=== PATIENT | male | born 1995 | race Asian ===

== ENCOUNTER 2018-02-11 13:06 | Emergency (ER) | payer MEDICAID, OTHER ==
[~2018-02-11] VITALS: Ht 190.5 cm; Wt 109.1 kg
[~2018-02-11 13:06] MED LIST: SERT50TA12 PO
[2018-02-11 17:35] VITALS: BP 127/74
== END 2018-02-11 17:54 | disposition home or self-care (01) ==
LOC: EMS 13:06
DX: F33.9 Major depressive disorder, recurrent, unspecified (principal)

== ENCOUNTER 2018-04-06 00:07 | Inpatient (IN) | payer MEDICAID, OTHER ==
[~2018-04-06] VITALS: Ht 190.5 cm; Wt 127.5 kg
[2018-04-06 01:22] LABS: BASOPHILS % (AUTO) 0.3 % (0.0-2.0); EOSINOPHILS % (AUTO) 1.5 % (1.0-6.0); HEMOGLOBIN 16.1 g/dL (13.5-17.5); LYMPHOCYTES # (AUTO) 2.6 K/uL (1.0-4.8); LYMPHOCYTES % (AUTO) 19.6 % (22.0-44.0); MEAN CORPUSCULAR HEMOGLOBIN 31.4 pg (26.0-34.0); MEAN CORPUSCULAR HGB CONC 33.6 G/dL (31.0-37.0); MEAN CORPUSCULAR VOLUME 94 fL (80-100); MONOCYTES # (AUTO) 1.4 K/uL (0.1-1.0); MONOCYTES % (AUTO) 10.8 % (2.0-9.0); NEUTROPHILS # (AUTO) 8.9 K/uL (1.8-7.7); NEUTROPHILS % (AUTO) 67.8 % (40.0-70.0); PLATELET COUNT (AUTO) 248 K/uL (150-450); RED BLOOD CELL COUNT(AUTO) 5.13 MIL/uL (4.50-5.90); RED CELL DISTRIBUTION WIDTH 12.7 % (11.5-14.5)
[2018-04-06 01:28] LABS: ANION GAP 8 mmol/L (8-16); CARBON DIOXIDE 28 mmol/L (22-29); CHLORIDE 99 mmol/L (98-107); CREATININE 1.18 mg/dL (0.60-1.30); GLOMERULAR FILTR. RATE CALC > 60 mL/min (>60); GLUCOSE,RANDOM 101 mg/dL (70-110); POTASSIUM 3.5 mmol/L (3.5-5.1); SODIUM SERUM 135 mmol/L (136-145); UREA NITROGEN, BLOOD 22 mg/dL (7-18)
[2018-04-06 01:37] LABS: ALANINE AMINOTRANSFERASE 49 U/L (12-78); ALBUMIN 3.8 g/dL (3.4-5.0); ALKALINE PHOSPHATASE 74 U/L (46-116); ASPARTATE AMINOTRANSFERASE 27 U/L (15-37); BILIRUBIN,TOTAL 0.2 mg/dL (0.1-1.0); CALCIUM, TOTAL 9.3 mg/dL (8.8-10.5); TOTAL PROTEIN, SERUM 7.6 g/dL (6.4-8.2)
[2018-04-06] MEDS ORDERED: ZOLPIDEM TARTRATE 10 MG TABLET PO PRN (03:45)
[2018-04-06] MEDS ORDERED: HALOPERIDOL 5 MG TABLET PO PRN (03:45)
[2018-04-06 05:57] VITALS: BP 141/76
[2018-04-06] MEDS ORDERED: IBUPROFEN 400 MG TABLET PO PRN (07:00)
[2018-04-06] MEDS ORDERED: PETROLATUM,WHITE 71 GM JELLY TP PRN (07:00)
[2018-04-06] MEDS ORDERED: ALBUTEROL SULFATE HFA 90 MCG/PUFF 8 GM INHALER IH PRN (07:00)
[2018-04-06] MEDS ORDERED: CloNIDine HCL 0.1 MG TABLET PO PRN (07:00)
[2018-04-06] MEDS ORDERED: ACETAMINOPHEN 325 MG TABLET PO PRN (07:00)
[2018-04-06] MEDS ORDERED: ONDANSETRON HCL 4 MG TABLET PO PRN (07:00)
[2018-04-06] MEDS ORDERED: MAGNESIUM HYDROXIDE SUSPENSION 30 ML UDCUP PO PRN (07:00)
[2018-04-06] MEDS ORDERED: GuaiFENesin/D-METHORPHAN [SUGAR-FREE] 200-20MG/10 ML SYRUP UDCUP PO PRN (07:00)
[2018-04-06] MEDS ORDERED: MAG HYDROX/AL HYDROX/SIMETH ES 30 ML SUSPENSION UDCUP PO PRN (07:00)
[2018-04-06] MEDS ORDERED: LOPERAMIDE HCL 2 MG CAPSULE PO PRN (07:00)
[2018-04-06] MEDS ORDERED: DOCUSATE SODIUM 100 MG CAPSULE PO PRN (07:00)
[2018-04-06 08:15] VITALS: BP 140/79
[2018-04-06 16:00] VITALS: BP 120/68
[2018-04-06] MEDS: LORazepam 2 MG TABLET PO PRN (16:55)
[2018-04-06] MEDS: RisperiDONE 1 MG TABLET PO SCH (20:22)
[2018-04-07 06:24] VITALS: BP 118/73
[2018-04-07 08:11] VITALS: BP 136/82
[2018-04-07] MEDS: RisperiDONE 1 MG TABLET PO SCH ×2 (09:03→20:35)
[2018-04-07] MEDS: SERTRALINE HCL 50 MG TABLET PO SCH (09:03)
[2018-04-07 09:16] LABS: CHOL/HDL RATIO 3.3 (4.2-7.3)
[2018-04-07 16:00] VITALS: BP 137/70
[2018-04-08 04:30] VITALS: BP 122/79
[2018-04-08] MEDS: SERTRALINE HCL 50 MG TABLET PO SCH (08:29)
[2018-04-08] MEDS: RisperiDONE 1 MG TABLET PO SCH ×2 (08:29→20:43)
[2018-04-08 09:19] VITALS: BP 123/61
[2018-04-08 16:20] VITALS: BP 122/75
[2018-04-09 04:39] VITALS: BP 118/72
[2018-04-09 08:00] VITALS: BP 115/61
[2018-04-09 08:03] LABS: BASOPHILS % (AUTO) 0.4 % (0.0-2.0); HEMATOCRIT 44.6 % (41-53); HEMOGLOBIN 15.3 g/dL (13.5-17.5); LYMPHOCYTES # (AUTO) 3.1 K/uL (1.0-4.8); MEAN CORPUSCULAR HEMOGLOBIN 31.9 pg (26.0-34.0); MEAN CORPUSCULAR HGB CONC 34.4 G/dL (31.0-37.0); MEAN CORPUSCULAR VOLUME 93 fL (80-100); MONOCYTES # (AUTO) 0.7 K/uL (0.1-1.0); MONOCYTES % (AUTO) 7.9 % (2.0-9.0); NEUTROPHILS # (AUTO) 5.1 K/uL (1.8-7.7); NEUTROPHILS % (AUTO) 55.7 % (40.0-70.0); PLATELET COUNT (AUTO) 212 K/uL (150-450); RED BLOOD CELL COUNT(AUTO) 4.81 MIL/uL (4.50-5.90); RED CELL DISTRIBUTION WIDTH 12.5 % (11.5-14.5)
[2018-04-09] MEDS: RisperiDONE 1 MG TABLET PO SCH ×2 (09:13→20:13)
[2018-04-09] MEDS: SERTRALINE HCL 50 MG TABLET PO SCH (09:13)
[2018-04-09 16:00] VITALS: BP 125/78
[2018-04-09] MEDS: LORazepam 2 MG TABLET PO PRN (20:13)
[2018-04-10 05:14] VITALS: BP 120/72
[2018-04-10 08:18] VITALS: BP 128/74
[2018-04-10] MEDS: SERTRALINE HCL 50 MG TABLET PO SCH (08:46)
[2018-04-10] MEDS: RisperiDONE 1 MG TABLET PO SCH (08:46)
[2018-04-10] MEDS ORDERED: SERT25TA PO (14:17)
[2018-04-10] MEDS ORDERED: RISP1TAB89 PO (14:17)
[2018-04-10 16:00] VITALS: BP 136/79
== END 2018-04-10 16:20 | disposition home or self-care (01) | DRG 750 ==
LOC: EMS 00:07 → B3A 04:00
DX: F25.1 Schizoaffective disorder, depressive type (principal); E87.1 Hypo-osmolality and hyponatremia; R45.851 Suicidal ideations; D72.829 Elevated white blood cell count, unspecified; G47.00 Insomnia, unspecified
CPT/HCPCS: G0480

== ENCOUNTER 2022-07-12 09:25 | Emergency (ER) | payer MEDICAID, OTHER ==
[~2022-07-12] VITALS: Ht 193 cm; Wt 135.9 kg
[~2022-07-12 09:25] MED LIST changes: +RISP1TAB89 PO; +SERT25TA PO; -SERT50TA12 PO
[2022-07-12 10:06] VITALS: BP 145/89
[2022-07-12 10:21] LABS: BASOPHILS % (AUTO) 0.5 % (0.0-2.0); EOSINOPHILS % (AUTO) 0.7 % (1.0-6.0); HEMATOCRIT 48.3 % (41-53); HEMOGLOBIN 15.7 g/dL (13.5-17.5); MEAN CORPUSCULAR HEMOGLOBIN 30.2 pg (26.0-34.0); MEAN CORPUSCULAR HGB CONC 32.6 G/dL (31.0-37.0); MEAN CORPUSCULAR VOLUME 93 fL (80-100); MONOCYTES % (AUTO) 7.2 % (2.0-9.0); NEUTROPHILS # (AUTO) 10.8 K/uL (1.8-7.7); NEUTROPHILS % (AUTO) 77.6 % (40.0-70.0); PLATELET COUNT (AUTO) 301 K/uL (150-450); RED CELL DISTRIBUTION WIDTH 13.1 % (11.5-14.5)
[2022-07-12 10:29] LABS: COVID AG,FIA SOURCE NASOPHARYNGEAL
[2022-07-12 10:36] LABS: ANION GAP 10 mmol/L (8-16); CALCIUM, TOTAL 9.1 mg/dL (8.8-10.5); CARBON DIOXIDE 24 mmol/L (22-29); CHLORIDE 102 mmol/L (98-107); CREATININE 1.03 mg/dL (0.60-1.30); GLOMERULAR FILTR. RATE CALC > 60 mL/min (>60); GLUCOSE,RANDOM 114 mg/dL (70-110); SODIUM SERUM 136 mmol/L (136-145)
[2022-07-12 10:44] LABS: ALANINE AMINOTRANSFERASE 46 U/L (12-78); ALBUMIN 4.1 g/dL (3.4-5.0); ALKALINE PHOSPHATASE 75 U/L (46-116); ASPARTATE AMINOTRANSFERASE 28 U/L (15-37); BILIRUBIN,TOTAL 0.5 mg/dL (0.1-1.0); TOTAL PROTEIN, SERUM 8.2 g/dL (6.4-8.2)
== END 2022-07-12 13:27 | disposition home or self-care (01) ==
LOC: EMS 09:30
DX: R45.1 Restlessness and agitation (principal); F20.9 Schizophrenia, unspecified
CPT/HCPCS: 99285; 87426; 80053; 85025; G0480

== ENCOUNTER 2022-08-01 16:24 | Inpatient (IN) | payer MEDICAID, OTHER ==
[~2022-08-01] VITALS: Ht 193 cm; Wt 134.6 kg
[2022-08-01] MEDS ORDERED: LORazepam 2 MG TABLET PO ONE (18:15)
[2022-08-01] MEDS ORDERED: OLANZapine 5 MG TABLET PO ONE (18:15)
[2022-08-01 18:20] LABS: COVID AG,FIA SOURCE NASAL SWAB
[2022-08-01 18:20] LABS: AMPHET/METH SCREEN,URINE NEGATIVE (NEGATIVE); BARBITURATE SCREEN, URINE NEGATIVE (NEGATIVE); BENZODIAZEPINES SCREEN,URINE NEGATIVE (NEGATIVE); CANNABINOID SCREEN,URINE NEGATIVE (NEGATIVE); COCAINE SCREEN,URINE NEGATIVE (NEGATIVE); METHADONE SCREEN, URINE NEGATIVE (NEGATIVE); OPIATE SCREEN,URINE NEGATIVE (NEGATIVE); PHENCYCLIDINE SCREEN,URINE NEGATIVE (NEGATIVE)
[2022-08-01 18:24] LABS: BASOPHILS % (AUTO) 0.4 % (0.0-2.0); EOSINOPHILS % (AUTO) 1.5 % (1.0-6.0); HEMATOCRIT 49.1 % (41-53); LYMPHOCYTES # (AUTO) 3.1 K/uL (1.0-4.8); LYMPHOCYTES % (AUTO) 22.1 % (22.0-44.0); MEAN CORPUSCULAR HEMOGLOBIN 30.6 pg (26.0-34.0); MEAN CORPUSCULAR HGB CONC 32.6 G/dL (31.0-37.0); MEAN CORPUSCULAR VOLUME 94 fL (80-100); MONOCYTES # (AUTO) 1.2 K/uL (0.1-1.0); MONOCYTES % (AUTO) 8.6 % (2.0-9.0); NEUTROPHILS # (AUTO) 9.6 K/uL (1.8-7.7); NEUTROPHILS % (AUTO) 67.4 % (40.0-70.0); PLATELET COUNT (AUTO) 293 K/uL (150-450); RED BLOOD CELL COUNT(AUTO) 5.23 MIL/uL (4.50-5.90)
[2022-08-01 18:31] LABS: ANION GAP 7 mmol/L (8-16); CALCIUM, TOTAL 9.5 mg/dL (8.8-10.5); CARBON DIOXIDE 28 mmol/L (22-29); CHLORIDE 103 mmol/L (98-107); CREATININE 0.89 mg/dL (0.60-1.30); GLOMERULAR FILTR. RATE CALC > 60 mL/min (>60); GLUCOSE,RANDOM 98 mg/dL (70-110); POTASSIUM 4.5 mmol/L (3.5-5.1); SODIUM SERUM 137 mmol/L (136-145)
[2022-08-01 18:36] LABS: ALANINE AMINOTRANSFERASE 64 U/L (12-78); ALBUMIN 3.9 g/dL (3.4-5.0); ALKALINE PHOSPHATASE 85 U/L (46-116); ASPARTATE AMINOTRANSFERASE 34 U/L (15-37); BILIRUBIN,TOTAL 0.2 mg/dL (0.1-1.0); TOTAL PROTEIN, SERUM 7.8 g/dL (6.4-8.2)
[2022-08-01] MEDS ORDERED: HALOPERIDOL 5 MG TABLET PO PRN (19:15)
[2022-08-01] MEDS ORDERED: LORazepam 2 MG TABLET PO PRN (19:15)
[2022-08-01 21:35] VITALS: BP 127/85; PULSE 68; RESP 18; TEMP 97.6
[2022-08-01] MEDS ORDERED: GuaiFENesin/D-METHORPHAN [SUGAR-FREE] 200-20MG/10 ML SYRUP UDCUP PO PRN (22:00)
[2022-08-01] MEDS ORDERED: DOCUSATE SODIUM 100 MG CAPSULE PO PRN (22:00)
[2022-08-01] MEDS ORDERED: MAG HYDROX/AL HYDROX/SIMETH ES 30 ML SUSPENSION UDCUP PO PRN (22:00)
[2022-08-01] MEDS ORDERED: NICOTINE 14 MG/24 HOUR PATCH TD PRN (22:00)
[2022-08-01] MEDS ORDERED: PETROLATUM,WHITE 28 GM JELLY TP PRN (22:00)
[2022-08-01] MEDS ORDERED: CloNIDine HCL 0.1 MG TABLET PO PRN (22:00)
[2022-08-01] MEDS ORDERED: LOPERAMIDE HCL 2 MG CAPSULE PO PRN (22:00)
[2022-08-01] MEDS ORDERED: ACETAMINOPHEN 325 MG TABLET PO PRN (22:00)
[2022-08-01] MEDS ORDERED: ONDANSETRON HCL 4 MG TABLET PO PRN (22:00)
[2022-08-01] MEDS ORDERED: MAGNESIUM HYDROXIDE SUSPENSION 30 ML UDCUP PO PRN (22:00)
[2022-08-01] MEDS ORDERED: IBUPROFEN 400 MG TABLET PO PRN (22:00)
[2022-08-01] MEDS ORDERED: ALBUTEROL SULFATE HFA 90 MCG/PUFF 8 GM INHALER IH PRN (22:00)
[2022-08-02 07:39] LABS: BASOPHILS % (AUTO) 0.5 % (0.0-2.0); EOSINOPHILS % (AUTO) 2.4 % (1.0-6.0); HEMATOCRIT 47.7 % (41-53); HEMOGLOBIN 15.6 g/dL (13.5-17.5); LYMPHOCYTES # (AUTO) 2.8 K/uL (1.0-4.8); LYMPHOCYTES % (AUTO) 24.1 % (22.0-44.0); MEAN CORPUSCULAR HEMOGLOBIN 30.4 pg (26.0-34.0); MEAN CORPUSCULAR HGB CONC 32.7 G/dL (31.0-37.0); MEAN CORPUSCULAR VOLUME 93 fL (80-100); MONOCYTES # (AUTO) 1.2 K/uL (0.1-1.0); MONOCYTES % (AUTO) 10.6 % (2.0-9.0); NEUTROPHILS # (AUTO) 7.3 K/uL (1.8-7.7); NEUTROPHILS % (AUTO) 62.4 % (40.0-70.0); PLATELET COUNT (AUTO) 268 K/uL (150-450); RED BLOOD CELL COUNT(AUTO) 5.12 MIL/uL (4.50-5.90); RED CELL DISTRIBUTION WIDTH 13.5 % (11.5-14.5)
[2022-08-02 08:26] LABS: ANION GAP 7 mmol/L (8-16); CARBON DIOXIDE 27 mmol/L (22-29); CHLORIDE 104 mmol/L (98-107); GLUCOSE,RANDOM 99 mg/dL (70-110); SODIUM SERUM 138 mmol/L (136-145)
[2022-08-02 08:27] LABS: ALANINE AMINOTRANSFERASE 56 U/L (12-78); ALBUMIN 3.3 g/dL (3.4-5.0); ALKALINE PHOSPHATASE 70 U/L (46-116); ASPARTATE AMINOTRANSFERASE 24 U/L (15-37); BILIRUBIN,TOTAL 0.4 mg/dL (0.1-1.0); CALCIUM, TOTAL 8.7 mg/dL (8.8-10.5); CREATININE 0.83 mg/dL (0.60-1.30); GLOMERULAR FILTR. RATE CALC > 60 mL/min (>60); HEMOGLOBIN A1C 5.3 % (3.8-5.6); THYROID STIMULATING HORMONE 1.09 uIU/mL (0.36-3.74)
[2022-08-02 09:27] VITALS: BP 135/59; PULSE 72; RESP 18; TEMP 97.7
[2022-08-02 09:27] LABS: CHOL/HDL RATIO 3.2 (4.2-7.3); CHOLESTEROL 123 mg/dL (131-200); HDL CHOLESTEROL 39 mg/dL (40-60); LDL CHOL (CALC.) 52 mg/dL (0-130); TRIGLYCERIDES 158 mg/dL (15-150)
[2022-08-02] MEDS: RisperiDONE 1 MG TABLET PO SCH ×2 (12:16→20:29)
[2022-08-02] MEDS: SERTRALINE HCL 50 MG TABLET PO SCH (12:16)
[2022-08-02 21:20] VITALS: BP 133/76; PULSE 64; RESP 17; TEMP 97.6
[2022-08-03 09:02] VITALS: BP 107/58; PULSE 68; RESP 18; TEMP 97.5
[2022-08-03] MEDS: RisperiDONE 1 MG TABLET PO SCH ×2 (09:05→20:16)
[2022-08-03] MEDS: SERTRALINE HCL 50 MG TABLET PO SCH (09:05)
[2022-08-03 21:10] VITALS: BP 139/74; PULSE 75; RESP 19; TEMP 97.9
[2022-08-04] MEDS: RisperiDONE 1 MG TABLET PO SCH ×2 (08:35→21:08)
[2022-08-04] MEDS: SERTRALINE HCL 50 MG TABLET PO SCH (08:35)
[2022-08-04 09:14] VITALS: BP 129/70; PULSE 74; RESP 18; TEMP 97.8
[2022-08-04 21:22] VITALS: BP 126/63; PULSE 88; RESP 18; TEMP 98.2
[2022-08-05 07:03] LABS: BASOPHILS % (AUTO) 0.5 % (0.0-2.0); EOSINOPHILS % (AUTO) 3.4 % (1.0-6.0); HEMATOCRIT 49.8 % (41-53); HEMOGLOBIN 16.6 g/dL (13.5-17.5); LYMPHOCYTES # (AUTO) 2.8 K/uL (1.0-4.8); LYMPHOCYTES % (AUTO) 30.5 % (22.0-44.0); MEAN CORPUSCULAR HEMOGLOBIN 31.1 pg (26.0-34.0); MEAN CORPUSCULAR HGB CONC 33.3 G/dL (31.0-37.0); MEAN CORPUSCULAR VOLUME 93 fL (80-100); MONOCYTES # (AUTO) 1.1 K/uL (0.1-1.0); MONOCYTES % (AUTO) 12.3 % (2.0-9.0); NEUTROPHILS # (AUTO) 4.9 K/uL (1.8-7.7); NEUTROPHILS % (AUTO) 53.3 % (40.0-70.0); PLATELET COUNT (AUTO) 254 K/uL (150-450); RED BLOOD CELL COUNT(AUTO) 5.33 MIL/uL (4.50-5.90); RED CELL DISTRIBUTION WIDTH 13.1 % (11.5-14.5)
[2022-08-05] MEDS: RisperiDONE 1 MG TABLET PO SCH ×2 (08:50→21:05)
[2022-08-05] MEDS: SERTRALINE HCL 50 MG TABLET PO SCH (08:50)
[2022-08-05 09:21] VITALS: BP 150/98; PULSE 75; RESP 18; TEMP 97.8
[2022-08-05 20:13] VITALS: BP 148/69; PULSE 86; RESP 19; TEMP 97.8
[2022-08-06 08:52] VITALS: BP 102/56; PULSE 73; RESP 18; TEMP 97.7
[2022-08-06] MEDS: RisperiDONE 1 MG TABLET PO SCH ×2 (09:37→20:44)
[2022-08-06] MEDS: SERTRALINE HCL 50 MG TABLET PO SCH (09:37)
[2022-08-06] MEDS: ZOLPIDEM TARTRATE 10 MG TABLET PO PRN (20:44)
[2022-08-06 22:08] VITALS: BP 133/71; PULSE 72; RESP 18; TEMP 97.9
[2022-08-07 09:04] VITALS: BP 160/92; PULSE 90; RESP 18; TEMP 97.8
[2022-08-07] MEDS: SERTRALINE HCL 50 MG TABLET PO SCH (09:17)
[2022-08-07] MEDS: RisperiDONE 1 MG TABLET PO SCH ×2 (09:17→21:03)
[2022-08-07] MEDS: ZOLPIDEM TARTRATE 10 MG TABLET PO PRN (21:03)
[2022-08-07 21:51] VITALS: BP 138/85; PULSE 75; RESP 18; TEMP 97.5
[2022-08-08 08:06] VITALS: BP 125/74; PULSE 78; RESP 20; TEMP 97.7
[2022-08-08] MEDS: SERTRALINE HCL 50 MG TABLET PO SCH (08:51)
[2022-08-08] MEDS: RisperiDONE 1 MG TABLET PO SCH ×2 (08:51→21:16)
[2022-08-08 20:22] VITALS: BP 131/72; PULSE 75; RESP 20; TEMP 97.7
[2022-08-08] MEDS: ZOLPIDEM TARTRATE 10 MG TABLET PO PRN (21:16)
[2022-08-09 08:06] VITALS: BP 135/64; PULSE 96; RESP 18; TEMP 96.8
[2022-08-09] MEDS: SERTRALINE HCL 50 MG TABLET PO SCH (08:45)
[2022-08-09] MEDS: RisperiDONE 1 MG TABLET PO SCH ×2 (08:45→20:41)
[2022-08-09 20:35] VITALS: BP 125/77; PULSE 74; RESP 18; TEMP 97.3
[2022-08-10 08:00] VITALS: BP 163/98; PULSE 78; RESP 19; TEMP 97.8
[2022-08-10] MEDS: RisperiDONE 1 MG TABLET PO SCH ×2 (08:51→20:26)
[2022-08-10] MEDS: SERTRALINE HCL 50 MG TABLET PO SCH (08:51)
[2022-08-10 20:34] VITALS: BP 139/67; PULSE 75; RESP 18; TEMP 97.8
[2022-08-11] MEDS: RisperiDONE 1 MG TABLET PO SCH ×2 (08:51→21:34)
[2022-08-11] MEDS: SERTRALINE HCL 50 MG TABLET PO SCH (08:51)
[2022-08-11 10:04] VITALS: BP 132/72; PULSE 60; RESP 18; TEMP 97.7
[2022-08-11 20:42] VITALS: BP 133/86; PULSE 65; RESP 16; TEMP 97.4
[2022-08-12] MEDS: SERTRALINE HCL 50 MG TABLET PO SCH (08:44)
[2022-08-12] MEDS: RisperiDONE 1 MG TABLET PO SCH (08:44)
[2022-08-12 09:05] VITALS: BP 134/79; PULSE 80; RESP 18; TEMP 97.6
[2022-08-12] MEDS ORDERED: RISP1TAB98 PO (12:37)
[2022-08-12] MEDS ORDERED: SERT-439 PO (12:37)
== END 2022-08-12 15:09 | disposition home or self-care (01) | DRG 750 ==
LOC: EMS 16:24 → 3EI 19:50
PROVIDERS: ADMIT Psychiatry & Neurology Child & Adolescent Psychiatry; ATTEND Psychiatry & Neurology Child & Adolescent Psychiatry
DX: F25.0 Schizoaffective disorder, bipolar type (principal); D72.829 Elevated white blood cell count, unspecified; E66.9 Obesity, unspecified; Z20.822 Contact with and (suspected) exposure to COVID-19; E78.5 Hyperlipidemia, unspecified; F41.9 Anxiety disorder, unspecified; R03.0 Elevated blood-pressure reading, without diagnosis of hypertension; Z79.899 Other long term (current) drug therapy; Z68.36 Body mass index [BMI] 36.0-36.9, adult
CPT/HCPCS: 80053; 80061; 80307; 83036; 84443; 85025; 87081; 99285; G0480

== ENCOUNTER 2022-08-18 11:15 | Emergency (ER) | payer MEDICAID, OTHER ==
[~2022-08-18] VITALS: Ht 188 cm; Wt 134.0 kg
[~2022-08-18 11:15] MED LIST changes: -RISP1TAB89 PO; +RISP1TAB98 PO; +SERT-439 PO; -SERT25TA PO
[2022-08-18 11:56] VITALS: TEMP 98.7
[2022-08-18 13:07] LABS: ANION GAP 10 mmol/L (8-16); CALCIUM, TOTAL 8.9 mg/dL (8.8-10.5); CARBON DIOXIDE 26 mmol/L (22-29); CHLORIDE 104 mmol/L (98-107); CREATININE 1.05 mg/dL (0.60-1.30); GLOMERULAR FILTR. RATE CALC > 60 mL/min (>60); GLUCOSE,RANDOM 125 mg/dL (70-110); POTASSIUM 3.8 mmol/L (3.5-5.1); SODIUM SERUM 139 mmol/L (136-145)
[2022-08-18 13:10] LABS: BASOPHILS % (AUTO) 0.3 % (0.0-2.0); EOSINOPHILS % (AUTO) 1.1 % (1.0-6.0); HEMATOCRIT 48.9 % (41-53); HEMOGLOBIN 15.9 g/dL (13.5-17.5); LYMPHOCYTES # (AUTO) 1.8 K/uL (1.0-4.8); LYMPHOCYTES % (AUTO) 14.2 % (22.0-44.0); MEAN CORPUSCULAR HEMOGLOBIN 30.1 pg (26.0-34.0); MEAN CORPUSCULAR HGB CONC 32.5 G/dL (31.0-37.0); MEAN CORPUSCULAR VOLUME 93 fL (80-100); MONOCYTES # (AUTO) 0.9 K/uL (0.1-1.0); MONOCYTES % (AUTO) 7.3 % (2.0-9.0); NEUTROPHILS % (AUTO) 77.1 % (40.0-70.0); PLATELET COUNT (AUTO) 263 K/uL (150-450); RED BLOOD CELL COUNT(AUTO) 5.28 MIL/uL (4.50-5.90); RED CELL DISTRIBUTION WIDTH 12.8 % (11.5-14.5)
[2022-08-18 13:11] LABS: ALANINE AMINOTRANSFERASE 57 U/L (12-78); ALKALINE PHOSPHATASE 81 U/L (46-116); ASPARTATE AMINOTRANSFERASE 23 U/L (15-37); BILIRUBIN,TOTAL 0.2 mg/dL (0.1-1.0); TOTAL PROTEIN, SERUM 7.7 g/dL (6.4-8.2)
[2022-08-18 13:12] LABS: ALBUMIN 3.7 g/dL (3.4-5.0)
[2022-08-18 15:51] LABS: AMPHET/METH SCREEN,URINE NEGATIVE (NEGATIVE); BARBITURATE SCREEN, URINE NEGATIVE (NEGATIVE); BENZODIAZEPINES SCREEN,URINE NEGATIVE (NEGATIVE); CANNABINOID SCREEN,URINE NEGATIVE (NEGATIVE); COCAINE SCREEN,URINE NEGATIVE (NEGATIVE); METHADONE SCREEN, URINE NEGATIVE (NEGATIVE); OPIATE SCREEN,URINE NEGATIVE (NEGATIVE); PHENCYCLIDINE SCREEN,URINE NEGATIVE (NEGATIVE)
[2022-08-18 16:40] VITALS: BP 133/62; PULSE 76; RESP 18
== END 2022-08-18 17:34 | disposition home or self-care (01) ==
LOC: EMS 11:53
DX: F25.9 Schizoaffective disorder, unspecified (principal); F41.9 Anxiety disorder, unspecified; F32.A Depression, unspecified
CPT/HCPCS: 99285; 80053; 85025; 36415; 80307; G0480

== ENCOUNTER 2023-03-04 20:38 | Inpatient (IN) | payer MEDICAID, OTHER ==
[~2023-03-04] VITALS: Ht 193 cm; Wt 127.3 kg
[~2023-03-04 20:38] MED LIST changes: +RISP-31 PO; -RISP1TAB98 PO
[2023-03-04 21:42] LABS: BASOPHILS % (AUTO) 0.6 % (0.0-2.0); EOSINOPHILS % (AUTO) 1.2 % (1.0-6.0); HEMATOCRIT 42.8 % (41-53); HEMOGLOBIN 14.4 g/dL (13.5-17.5); LYMPHOCYTES # (AUTO) 3.3 K/uL (1.0-4.8); LYMPHOCYTES % (AUTO) 26.2 % (22.0-44.0); MEAN CORPUSCULAR HEMOGLOBIN 31.6 pg (26.0-34.0); MEAN CORPUSCULAR HGB CONC 33.7 G/dL (31.0-37.0); MEAN CORPUSCULAR VOLUME 94 fL (80-100); MONOCYTES # (AUTO) 1.3 K/uL (0.1-1.0); NEUTROPHILS # (AUTO) 7.8 K/uL (1.8-7.7); PLATELET COUNT (AUTO) 283 K/uL (150-450); RED BLOOD CELL COUNT(AUTO) 4.56 MIL/uL (4.50-5.90); RED CELL DISTRIBUTION WIDTH 12.4 % (11.5-14.5); WHITE BLOOD COUNT (AUTO) 12.7 K/uL (4.5-11.0)
[2023-03-04 21:45] LABS: PH,URINE DRUG SCREEN 6.5 (5.0-8.0)
[2023-03-04 21:52] LABS: ALCOHOL, URINE DRUG SCREEN NEGATIVE (NEGATIVE); AMPHET/METH SCREEN,URINE NEGATIVE (NEGATIVE); BARBITURATE SCREEN, URINE NEGATIVE (NEGATIVE); BENZODIAZEPINES SCREEN,URINE NEGATIVE (NEGATIVE); CANNABINOID SCREEN,URINE NEGATIVE (NEGATIVE); COCAINE SCREEN,URINE NEGATIVE (NEGATIVE); METHADONE SCREEN, URINE NEGATIVE (NEGATIVE); OPIATE SCREEN,URINE NEGATIVE (NEGATIVE); PHENCYCLIDINE SCREEN,URINE NEGATIVE (NEGATIVE)
[2023-03-04 21:57] LABS: ANION GAP 9 mmol/L (8-16); CALCIUM, TOTAL 9.5 mg/dL (8.8-10.5); CARBON DIOXIDE 28 mmol/L (22-29); CHLORIDE 104 mmol/L (98-107); GLOMERULAR FILTR. RATE CALC > 60 mL/min (>60); GLUCOSE,RANDOM 108 mg/dL (70-110); POTASSIUM 3.9 mmol/L (3.5-5.1); SODIUM SERUM 141 mmol/L (136-145); UREA NITROGEN, BLOOD 15 mg/dL (7-18)
[2023-03-04 22:03] LABS: ALANINE AMINOTRANSFERASE 33 U/L (12-78); ALBUMIN 4.2 g/dL (3.4-5.0); ALKALINE PHOSPHATASE 78 U/L (46-116); ASPARTATE AMINOTRANSFERASE 22 U/L (15-37); BILIRUBIN,TOTAL 0.4 mg/dL (0.1-1.0); TOTAL PROTEIN, SERUM 7.8 g/dL (6.4-8.2)
[2023-03-04 22:04] LABS: ALCOHOL, BLOOD (SERUM) < 3 mg/dL (0-10)
[2023-03-04 22:18] LABS: COVID AG,FIA SOURCE NPH
[2023-03-04 22:45] LABS: SARS-COV2 (COVID) ANTIGEN,FIA Negative (Negative)
[2023-03-04] MEDS ORDERED: RisperiDONE 1 MG TABLET PO ONE (23:00)
[2023-03-04] MEDS ORDERED: ZOLPIDEM TARTRATE 10 MG TABLET PO PRN (23:30)
[2023-03-04] MEDS ORDERED: LORazepam 2 MG TABLET PO PRN (23:30)
[2023-03-04] MEDS ORDERED: HALOPERIDOL 5 MG TABLET PO PRN (23:30)
[2023-03-05 01:30] VITALS: BP 120/73; PULSE 71; RESP 18; TEMP 97.1
[2023-03-05] MEDS ORDERED: MAGNESIUM HYDROXIDE SUSPENSION 30 ML UDCUP PO PRN (06:45)
[2023-03-05] MEDS ORDERED: ONDANSETRON HCL 4 MG TABLET PO PRN (06:45)
[2023-03-05] MEDS ORDERED: NICOTINE 14 MG/24 HOUR PATCH TD PRN (06:45)
[2023-03-05] MEDS ORDERED: ALBUTEROL SULFATE HFA 90 MCG/PUFF 8 GM INHALER IH PRN (06:45)
[2023-03-05] MEDS ORDERED: GuaiFENesin/D-METHORPHAN [SUGAR-FREE] 200-20MG/10 ML SYRUP UDCUP PO PRN (06:45)
[2023-03-05] MEDS ORDERED: PETROLATUM,WHITE 28 GM JELLY TP PRN (06:45)
[2023-03-05] MEDS ORDERED: MAG HYDROX/ALUMINUM HYD/SIMETH ES 30 ML SUSPENSION UDCUP PO PRN (06:45)
[2023-03-05] MEDS ORDERED: LOPERAMIDE HCL 2 MG CAPSULE PO PRN (06:45)
[2023-03-05] MEDS ORDERED: CloNIDine HCL 0.1 MG TABLET PO PRN (06:45)
[2023-03-05] MEDS ORDERED: IBUPROFEN 400 MG TABLET PO PRN (06:45)
[2023-03-05] MEDS ORDERED: DOCUSATE SODIUM 100 MG CAPSULE PO PRN (06:45)
[2023-03-05] MEDS ORDERED: ACETAMINOPHEN 325 MG TABLET PO PRN (06:45)
[2023-03-05 10:03] VITALS: BP 136/77; PULSE 81; RESP 20; TEMP 97.4
[2023-03-05] MEDS: RisperiDONE 1 MG TABLET PO SCH ×2 (14:44→20:47)
[2023-03-05] MEDS: SERTRALINE HCL 50 MG TABLET PO SCH (14:44)
[2023-03-05 22:03] VITALS: BP 128/72; PULSE 71; RESP 19; TEMP 98
[2023-03-06 07:39] LABS: BASOPHILS % (AUTO) 0.4 % (0.0-2.0); EOSINOPHILS % (AUTO) 1.9 % (1.0-6.0); HEMATOCRIT 42.1 % (41-53); HEMOGLOBIN 14.7 g/dL (13.5-17.5); LYMPHOCYTES # (AUTO) 2.4 K/uL (1.0-4.8); LYMPHOCYTES % (AUTO) 31.4 % (22.0-44.0); MEAN CORPUSCULAR HEMOGLOBIN 32.3 pg (26.0-34.0); MEAN CORPUSCULAR HGB CONC 34.8 G/dL (31.0-37.0); MEAN CORPUSCULAR VOLUME 93 fL (80-100); MONOCYTES # (AUTO) 0.6 K/uL (0.1-1.0); MONOCYTES % (AUTO) 7.7 % (2.0-9.0); NEUTROPHILS # (AUTO) 4.5 K/uL (1.8-7.7); NEUTROPHILS % (AUTO) 58.6 % (40.0-70.0); PLATELET COUNT (AUTO) 259 K/uL (150-450); RED BLOOD CELL COUNT(AUTO) 4.54 MIL/uL (4.50-5.90); RED CELL DISTRIBUTION WIDTH 12.7 % (11.5-14.5); WHITE BLOOD COUNT (AUTO) 7.7 K/uL (4.5-11.0)
[2023-03-06 08:01] LABS: ALANINE AMINOTRANSFERASE 28 U/L (12-78); ALBUMIN 3.8 g/dL (3.4-5.0); ALKALINE PHOSPHATASE 75 U/L (46-116); ANION GAP 10 mmol/L (8-16); ASPARTATE AMINOTRANSFERASE 21 U/L (15-37); BILIRUBIN,TOTAL 0.3 mg/dL (0.1-1.0); CALCIUM, TOTAL 9.1 mg/dL (8.8-10.5); CARBON DIOXIDE 27 mmol/L (22-29); CHLORIDE 102 mmol/L (98-107); CREATININE 0.86 mg/dL (0.60-1.30); GLOMERULAR FILTR. RATE CALC > 60 mL/min (>60); GLUCOSE,RANDOM 133 mg/dL (70-110); POTASSIUM 4.2 mmol/L (3.5-5.1); SODIUM SERUM 139 mmol/L (136-145); TOTAL PROTEIN, SERUM 7.2 g/dL (6.4-8.2); UREA NITROGEN, BLOOD 9 mg/dL (7-18)
[2023-03-06 08:14] LABS: HEMOGLOBIN A1C 5.4 % (3.8-5.6)
[2023-03-06 08:30] LABS: CHOL/HDL RATIO 3.3 (4.2-7.3); CHOLESTEROL 142 mg/dL (131-200); HDL CHOLESTEROL 43 mg/dL (40-60); LDL CHOL (CALC.) 86 mg/dL (0-130); THYROID STIMULATING HORMONE 0.65 uIU/mL (0.36-3.74); TRIGLYCERIDES 67 mg/dL (15-150)
[2023-03-06] MEDS: SERTRALINE HCL 50 MG TABLET PO SCH (08:44)
[2023-03-06] MEDS: RisperiDONE 1 MG TABLET PO SCH ×2 (08:44→20:46)
[2023-03-06 09:29] VITALS: BP 118/61; PULSE 65; RESP 16; TEMP 98
[2023-03-06 20:40] VITALS: BP 122/63; PULSE 61; RESP 18; TEMP 97.6
[2023-03-07 08:28] LABS: APPEARANCE,URINE CLEAR (CLEAR); BILIRUBIN,URINE NEGATIVE (NEGATIVE); COLOR,URINE LIGHT YELLOW (YELLOW); GLUCOSE, URINE (UA) NEGATIVE (NEGATIVE); KETONES,URINE NEGATIVE (NEGATIVE); LEUKOCYTE ESTERASE ,URINE NEGATIVE (NEGATIVE); NITRATE,URINE NEGATIVE (NEGATIVE); OCCULT BLOOD,URINE NEGATIVE (NEGATIVE); PROTEIN,URINE NEGATIVE (NEGATIVE); SPECIFIC GRAVITIY, URINE 1.018 (1.003-1.030); UROBILINOGEN,URINE <=1.0 mg/dL (<=1.0)
[2023-03-07 08:30] LABS: ALCOHOL, URINE DRUG SCREEN NEGATIVE (NEGATIVE); AMPHET/METH SCREEN,URINE NEGATIVE (NEGATIVE); BARBITURATE SCREEN, URINE NEGATIVE (NEGATIVE); BENZODIAZEPINES SCREEN,URINE NEGATIVE (NEGATIVE); CANNABINOID SCREEN,URINE NEGATIVE (NEGATIVE); COCAINE SCREEN,URINE NEGATIVE (NEGATIVE); METHADONE SCREEN, URINE NEGATIVE (NEGATIVE); OPIATE SCREEN,URINE NEGATIVE (NEGATIVE); PHENCYCLIDINE SCREEN,URINE NEGATIVE (NEGATIVE)
[2023-03-07 08:45] VITALS: BP 147/82; PULSE 80; RESP 18; TEMP 97.5
[2023-03-07] MEDS: RisperiDONE 1 MG TABLET PO SCH ×2 (09:37→20:51)
[2023-03-07] MEDS: SERTRALINE HCL 50 MG TABLET PO SCH (09:37)
[2023-03-07 21:19] VITALS: BP 125/76; PULSE 78; RESP 18; TEMP 97.7
[2023-03-08 08:44] VITALS: BP 139/82; PULSE 76; RESP 18; TEMP 98.1
[2023-03-08] MEDS: RisperiDONE 1 MG TABLET PO SCH ×2 (10:29→21:11)
[2023-03-08] MEDS: SERTRALINE HCL 50 MG TABLET PO SCH (10:29)
[2023-03-08 21:44] VITALS: BP 130/71; PULSE 73; RESP 18; TEMP 97.9
[2023-03-09] MEDS: SERTRALINE HCL 50 MG TABLET PO SCH (08:42)
[2023-03-09] MEDS: RisperiDONE 1 MG TABLET PO SCH ×2 (08:42→21:07)
[2023-03-09 09:00] VITALS: BP 130/70; PULSE 67; RESP 18; TEMP 97.7
[2023-03-09 20:20] VITALS: BP 122/63; PULSE 78; RESP 18; TEMP 97.6
[2023-03-10] MEDS: RisperiDONE 1 MG TABLET PO SCH ×2 (10:29→20:55)
[2023-03-10] MEDS: SERTRALINE HCL 50 MG TABLET PO SCH (10:29)
[2023-03-10 11:03] VITALS: BP 149/95; PULSE 97; RESP 19; TEMP 97.9
[2023-03-10 21:26] VITALS: BP 125/68; PULSE 68; RESP 19; TEMP 97.3
[2023-03-11 09:36] VITALS: BP 131/66; PULSE 90; RESP 18; TEMP 97.7
[2023-03-11] MEDS: RisperiDONE 1 MG TABLET PO SCH ×2 (09:46→21:11)
[2023-03-11] MEDS: SERTRALINE HCL 50 MG TABLET PO SCH (09:46)
[2023-03-11 21:55] VITALS: BP 124/86; PULSE 68; RESP 19; TEMP 98.1
[2023-03-12] MEDS: SERTRALINE HCL 50 MG TABLET PO SCH (09:02)
[2023-03-12] MEDS: RisperiDONE 1 MG TABLET PO SCH (09:02)
[2023-03-12 12:52] VITALS: BP 111/59; PULSE 71; RESP 18; TEMP 97.3
[2023-03-12 20:30] VITALS: BP 119/77; PULSE 84; RESP 18; TEMP 97.7
[2023-03-12] MEDS: RisperiDONE 2 MG TABLET PO SCH (21:00)
[2023-03-13] MEDS: RisperiDONE 2 MG TABLET PO SCH ×2 (08:26→20:06)
[2023-03-13] MEDS: SERTRALINE HCL 50 MG TABLET PO SCH (08:26)
[2023-03-13 11:00] VITALS: BP 107/66; PULSE 75; RESP 18; TEMP 98
[2023-03-13 20:08] VITALS: BP 106/50; PULSE 62; RESP 18; TEMP 97.5
[2023-03-14 08:30] VITALS: BP 105/52; PULSE 79; RESP 18; TEMP 97.5
[2023-03-14] MEDS: RisperiDONE 2 MG TABLET PO SCH ×2 (09:53→20:26)
[2023-03-14] MEDS: SERTRALINE HCL 50 MG TABLET PO SCH (09:53)
[2023-03-14 20:12] VITALS: BP 114/61; PULSE 60; RESP 18; TEMP 97.7
[2023-03-15] MEDS: SERTRALINE HCL 50 MG TABLET PO SCH (08:10)
[2023-03-15] MEDS: RisperiDONE 2 MG TABLET PO SCH ×2 (08:10→20:55)
[2023-03-15 10:06] VITALS: BP 135/95; PULSE 96; RESP 18; TEMP 97.8
[2023-03-15 21:08] VITALS: BP 112/60; PULSE 66; RESP 18; TEMP 97.3
[2023-03-16] MEDS: SERTRALINE HCL 50 MG TABLET PO SCH (08:12)
[2023-03-16] MEDS: RisperiDONE 2 MG TABLET PO SCH ×2 (08:12→20:48)
[2023-03-16 08:39] VITALS: BP 135/81; PULSE 91; RESP 18; TEMP 97.4
[2023-03-16 20:44] VITALS: RESP 18
[2023-03-17] MEDS: SERTRALINE HCL 50 MG TABLET PO SCH (08:17)
[2023-03-17] MEDS: RisperiDONE 2 MG TABLET PO SCH ×2 (08:17→20:55)
[2023-03-17 09:53] VITALS: BP 129/71; PULSE 71; RESP 18; TEMP 97.8
[2023-03-17 20:30] VITALS: BP 142/87; PULSE 77; RESP 18; TEMP 97.9
[2023-03-18 09:09] VITALS: BP 115/73; PULSE 81; RESP 17; TEMP 97.7
[2023-03-18] MEDS: SERTRALINE HCL 50 MG TABLET PO SCH (10:08)
[2023-03-18] MEDS: RisperiDONE 2 MG TABLET PO SCH ×2 (10:08→20:42)
[2023-03-18 22:34] VITALS: BP 119/63; PULSE 65; RESP 17; TEMP 97
[2023-03-19 09:34] VITALS: BP 133/77; PULSE 87; RESP 18; TEMP 97.3
[2023-03-19] MEDS: RisperiDONE 2 MG TABLET PO SCH (10:43)
[2023-03-19] MEDS: SERTRALINE HCL 50 MG TABLET PO SCH (10:43)
[2023-03-19] MEDS ORDERED: RISP2TAB86 PO (11:13)
[2023-03-19] MEDS ORDERED: SERT-439 PO (11:13)
== END 2023-03-19 15:00 | disposition home or self-care (01) | DRG 750 ==
LOC: EMS 20:39 → 3EI 03-05 00:19
PROVIDERS: ADMIT Psychiatry & Neurology Psychiatry; ATTEND Psychiatry & Neurology Psychiatry
PROC: GZHZZZZ Group Psychotherapy (ICD-10-PCS; principal; 2023-03-05)
PROC: GZ56ZZZ Individual Psychotherapy, Supportive (ICD-10-PCS; 2023-03-05)
DX: F20.0 Paranoid schizophrenia (principal); Z91.148 Patient's other noncompliance with medication regimen for other reason; D72.829 Elevated white blood cell count, unspecified; Z20.822 Contact with and (suspected) exposure to COVID-19; K59.00 Constipation, unspecified; F41.9 Anxiety disorder, unspecified; G47.00 Insomnia, unspecified; R51.9 Headache, unspecified
CPT/HCPCS: 70450; 80053; 80061; 80307; 81003; 83036; 84443; 85025; 99285; G0480